=== PATIENT | male | born 1960 | race Caucasian/White ===

== ENCOUNTER → 2023-08-14 16:57 | Outpatient (REF) | payer OTHER, SELFPAY | LOC: MRI 3T 16:57 | PROVIDERS: ATTENDING PHYSICIAN Specialist; FAMILY PHYSICIAN Family Medicine | DX: R97.20 Elevated prostate specific antigen [PSA] (principal) | CPT/HCPCS: 72197; A9575 ==

== ENCOUNTER → 2023-10-09 13:57 | Outpatient (REF) | payer OTHER, SELFPAY | LOC: HWRAD 13:57 | PROVIDERS: ATTENDING PHYSICIAN Family Medicine | DX: Z00.00 Encounter for general adult medical examination without abnormal findings (principal); I10 Essential (primary) hypertension; E78.5 Hyperlipidemia, unspecified; I48.0 Paroxysmal atrial fibrillation | CPT/HCPCS: 71046 ==

== ENCOUNTER → 2024-04-02 12:59 | Outpatient (REF) | payer OTHER, SELFPAY | LOC: HWRAD 12:59 | PROVIDERS: ATTENDING PHYSICIAN Family Medicine | DX: M54.12 Radiculopathy, cervical region (principal) | CPT/HCPCS: 72050; 72070 ==

== ENCOUNTER → 2024-06-21 16:40 | Outpatient (REF) | payer OTHER, SELFPAY | LOC: MRI 3T 16:40 | PROVIDERS: ATTENDING PHYSICIAN Family Medicine | DX: M54.2 Cervicalgia (principal) | CPT/HCPCS: 72141 ==

== ENCOUNTER 2025-03-10 10:40 | Emergency (ER) | payer OTHER, SELFPAY ==
[2025-03-10 10:51] VITALS: BP 138/96
[2025-03-10 10:56] LABS: Glucose - Point of Care 285 mg/dl (70-99)
[2025-03-10 11:18] LABS: Hematocrit 48.7 % (39.0-52.0); Hemoglobin 16.9 g/dL (13.0-18.0); Mean Corp Hgb Conc. 34.7 g/dL (33.0-37.0); Mean Corpuscular Volume 84.5 fL (80.0-94.0); Nucleated Red Blood Cells % 0 % (-); Platelet Count 293 10^3/uL (130-400); Red Cell Dist. Width 12.7 % (11.5-14.5)
[2025-03-10 11:36] LABS: ALT (SGPT) 36 U/L (0-50); AST (SGOT) 31 U/L (17-59); Albumin 4.4 g/dl (3.5-5.0); Alkaline Phosphatase 88 U/L (38-126); Blood Urea Nitrogen 20 mg/dl (9-20); Calcium 9.3 mg/dl (8.4-10.2); Carbon Dioxide 24 mmol/L (22-30); Chloride 102 mmol/L (98-107); Glucose 285 mg/dl (70-99); Lipase 39 U/L (23-300); Potassium 4.5 mmol/L (3.5-5.1); Sodium 135 mmol/L (135-145); Total Protein 7.8 g/dl (6.3-8.2); eGFR > 60.00
[2025-03-10] MEDS: NSS 1000 IV (11:39)
[2025-03-10 12:40] LABS: Urine Character Clear (Clear)
[2025-03-10 12:47] VITALS: BP 119/83
[2025-03-10 13:11] LABS: Urine Squamous Cell 0-2 /LPF (Few)
[2025-03-10 13:12] LABS: Urine Red Blood Cell 0-2 /HPF (0-2); Urine White Cell 0-2 /HPF (0-5)
[2025-03-10 13:27] LABS: Glucose - Point of Care 232 mg/dl (70-99)
--- NOTE | 2025-03-10 13:35 | ED.GENMED ---
History of Present Illness
General
Chief Complaint: Blood Sugar Problem
Time Seen by Provider: 03/10/25 11:26
Nursing documentation reviewed up to this point in time: agreed with
History of Present Illness
History of Present Illness:
64-year-old male presents to the ER with his for evaluation of elevated blood sugars. Patient reports that he and his had been on a cruise. They returned home 2 weeks ago and unfortunately subsequently had symptoms that were diagnosed as
COVID. Patient was initiated on Paxlovid but states that his blood sugars were very elevated on this medication and he stopped. He states that the COVID symptoms have resolved but his blood sugars have continued to be greater than 200 and
sometimes over 300. He reports excessive thirst and urinary frequency. He denies fevers or chills. He does admit that he has not been following a diabetic friendly diet. He had been on Mounjaro prior to his vacation but had held it in
anticipation of the trip. He did take his routine dose of Mounjaro on Monday. He also took some of his mother's metformin-to 50 mg twice yesterday and once this morning. His blood sugars have persistedly been elevated prompting visit to the ER
today. Patient also reports intermittent feeling of blurred vision. He denies focal weakness to arms or legs. No paresthesias. No syncope or trauma. He denies chest pain or shortness of breath. is present at bedside and corroborates
patient's story, although she does express some concern over his dietary choices, including water ice and yogurt with two nectarines last night.
Past History
Past History
ED Past Medical History: HTN, Hypercholesterolemia and Other (diverticulosis)
ED Past Surgical History: Cardiac (cath >10 yrs ago, No stents) and Orthopedic (right knee replacement)
Social History
Tobacco: Non-smoker
Alcohol: None
Personal: Other (Significant other)
Living: with family
Employment: Employed
Review of Systems
Review of Systems
Allergies reviewed?: Yes
Phy Exam
Physical Exam
Physical Exam:
Patient is awake, alert, obese, appears in no acute distress, head is normocephalic atraumatic, PERRL, EOMI, mucous membranes moist, heart regular rate and rhythm no murmurs or ectopy, lungs are clear to auscultation without wheezes rales or
rhonchi, abdomen is soft, obese, nontender on palpation, extremities without edema, GCS is 15, no dysdiadochokinesia, no ataxia, no pronator drift
Course
Orders/Labs/Results
Orders:
Orders
03/10/25 10:59
Complete Blood Count/With Diff Urgent
Comprehensive Metabolic Panel Urgent
Lipase Urgent
03/10/25 11:26
0.9% Sodium Chloride 1000 ml [Nss] 1,000 ml IV BOLUS
03/10/25 11:40
Urinalysis Reflex To Culture Urgent
Date Specimen was Collected: 03/10/25
Time Specimen was Collected: 11:36
Urine Microscopic Reflex Cult Urgent
03/10/25 12:10
CT Head W/o Iv Contrast Urgent
Comment:
Reason For Exam: blurred vision
03/10/25 13:21
Bedside Glucose- Treatment ONCE
Abnormal Lab Results
03/10/25 03/10/25 03/10/25
10:54 10:59 11:40
Absolute Neuts (auto) 7.9 H 10^3/uL
(1.4-6.5)
Absolute Monos (auto) 0.9 H 10^3/uL
(0.1-0.6)
Lymphocytes % 15.1 L %
(20.5-51.1)
Glucose 285 H mg/dl
(70-99)
Ur Occult Blood Reflex 2+ A
(Negative)
Urine Glucose 4+ A
(Negative)
Urine Albumin (Reflex) 2+ A
(Neg - Trace)
POC Glucose 285 H mg/dl
(70-99)
03/10/25
13:26
Absolute Neuts (auto)
Absolute Monos (auto)
Lymphocytes %
Glucose
Ur Occult Blood Reflex
Urine Glucose
Urine Albumin (Reflex)
POC Glucose 232 H mg/dl
(70-99)
03/10/25 10:59
03/10/25 10:59
Urinalysis has glucose but no ketones. Blood sugar is elevated at 285 with normal CO2, no chemical evidence for DKA. CBC reassuring. Kidney function preserved
Vital Signs
Initial and Last Documented VS:
Initial Vital Signs
Temp Pulse Resp BP Pulse Ox
97.8 F 86 18 138/96 98
03/10/25 10:51 03/10/25 10:51 03/10/25 10:51 03/10/25 10:51 03/10/25 10:51
Last Documented Vital Signs
Temp Pulse Resp BP Pulse Ox
97.8 F 77 16 121/74 97
03/10/25 10:51 03/10/25 14:11 03/10/25 14:11 03/10/25 14:11 03/10/25 14:11
MDM/Problems Addressed
Differential Diagnosis Includes:
Differential diagnosis to consider but not limited to diabetes, medical noncompliance, acute kidney injury, along with other etiologies considered
Chronic conditions affecting care:
Prediabetes, obesity, hypertension, CAD, hyperlipidemia
*Pulse Oximetry
SaO2: 95
Oxygen Mode of Delivery: Room air
Patient hypoxic: no
*Critical Care Note
Total Time (30-74mins, 75-104mins- exclusive of procedures): Not Applicable
Update Note
Update Note:
Patient counseled extensively on benefits of dietary modification and exercise to help with not only weight loss but also to improve his overall nutrition and regulate his blood sugars. I reviewed all test results with patient and present at
bedside-patient has hyperglycemia but no evidence for DKA. Patient was given IV fluids for hydration to help with blood sugar which had mild improvement during time of observation. CT head was ordered given prior history of ACS and concern for
visual disturbance. This does not reveal any evidence for CVA, intermittent blurred vision likely related to elevated blood sugars. I spoke with patient at length about improve dietary choices and current medications. Will initiate metformin
twice daily. Patient and expressed understanding of need to follow-up with primary care physician this week for reevaluation and further care, we talked about benefit of follow-up with edge brusher also. Patient also advised to start a food
journal. Patient and feel comfortable with plan for discharge home and had no questions prior to leaving the department.
ED Attending Note
-
Portions of this chart may have been created with voice recognition software.� Occasional wrong word or��sound alike� substitutions may have occurred due to the inherent limitations of voice recognition software.
Discharge Plan
Departure
Patient Disposition: Home (Routine Discharge)
Date of Disposition: 03/10/25
Time of Disposition: 14:03
Patient with high blood pressure during this ER visit?: No
Discharge Problem:
Diabetes, Hyperglycemia
Instructions: Type 2 Diabetes (DC)
Prescriptions:
New
metformin 500 mg tablet
500 mg PO BID Qty: 20 0RF
No Action
tramadol 50 mg Tablet
50 mg PO BID PRN (Reason: as needed)
aspirin 81 mg Tablet,Chewable
81 mg PO DAILY
multivitamin Tablet
1 tab PO DAILY
albuterol sulfate [ProAir HFA] 90 mcg/actuation Hfa Aerosol Inhaler
2 puff INHALATION Q6H PRN (Reason: sob)
tamsulosin [Flomax] 0.4 mg Capsule
0.4 mg PO HS
furosemide 40 mg Tablet
40 mg PO DAILY Qty: 10 0RF
amiodarone [Pacerone] 200 mg Tablet
200 mg PO DAILY Qty: 30 1RF
acetaminophen 325 mg Tablet
650 mg PO Q4HPRN PRN (Reason: mild pain,headache,temp >101F ) Qty: 0 0RF
metoprolol succinate 100 mg Tablet Extended Release 24 Hr
100 mg PO BID Qty: 60 1RF
pantoprazole 40 mg Tablet,Delayed Release (Dr/Ec)
40 mg PO DAILY Qty: 30 1RF
Eliquis 5 mg tablet
5 mg PO BID Qty: 60 1RF
rosuvastatin [Crestor] 20 mg tablet
20 mg PO DAILY Qty: 30 1RF
Referrals:
Nic Her DO [Family Provider, Family Practice]
Activity Restrictions/Additional Instructions:
Encourage fluids-you should be drinking 64 ounces of water daily. Please try to limit diet drinks to 1 serving daily. Please contact your primary care physician today to schedule appointment for later this week for reevaluation of not only your
blood sugar but also to obtain referral to see a edge brusher. Please start taking a food diary to evaluate your calorie intake and help you make better food choices. Return to the ER for any concerns including but not limited to persistently
elevated blood sugar greater than 300, persistent change in vision, weakness
Interventions
Interventions:
*Risk Screen - Suicide Last Done: 03/10/25 10:55
*General Assessment Last Done: 03/10/25 10:55
*Neglect/Abuse Screening Last Done: 03/10/25 10:55
*ED- Fall Risk Assessment Last Done: 03/10/25 10:55
*ED COVID-19 Vaccine History Last Done: 03/10/25 10:55
*Nursing Disposition Last Done: 03/10/25 14:11
ED- Neurological Assessment Last Done: 03/10/25 11:41
Discharge Date and Time
Discharge Date/Time: 03/10/25 14:12
Print Language: CROATIAN
[2025-03-10 14:11] VITALS: BP 121/74
== END 2025-03-10 14:12 | disposition home or self-care (01) ==
LOC: EMR 10:40
PROVIDERS: Emergency Medicine; EMERGENCY PHYSICIAN Emergency Medicine; FAMILY PHYSICIAN Family Medicine
DX: E11.65 Type 2 diabetes mellitus with hyperglycemia (principal); E78.00 Pure hypercholesterolemia, unspecified; I10 Essential (primary) hypertension; E66.9 Obesity, unspecified
CPT/HCPCS: 96360; 99284; 70450; 80053; 81003; 81015; 82962; 83690; 85025